=== PATIENT | male | born 1995 | race Caucasian/White ===

== ENCOUNTER → 2017-01-08 11:26 | Emergency (ER) | payer BC, OTHER ==
[2017-01-08 11:52] VITALS: BP 159/97
--- NOTE | 2017-01-08 12:32 | RAD ---
Indication: Left testicular pain. Real-time sonography of the scrotum was performed. The right testis measures 4.5 x 2.1 x 3.1 cm. No intratesticular masses are noted. Normal flow is noted in the right testis. The epididymis measures 14 x 15 mm with a cyst in the epididymal head measuring 7 x 5 x 7 mm. The left testes measures 4.4 x 2.3 x 2.9 cm. Doppler interrogation demonstrates flow in the left testis. Left epididymis measures 14 x 10 mm with a trace left hydrocele. IMPRESSION: No intratesticular masses are noted. Normal flow in both testis. Right epididymal head cyst measuring up to 7 mm.
--- NOTE | 2017-01-08 13:08 | ED ---
Les Tobin Benjamin, scribed for Torrey Hansen MD on 01/08/17 at 1155 . GI/ HPI - HPI Summary HPI Summary: 21yo male c/o gradual onset of left testicular pain 1.5 hour ago while he was in a meeting. Pt states that his pain worsens slightly when he walks. Hx of prior pain that comes and goes intermittently. - History of Current Complaint Chief Complaint: EDUrogenitalProblems Time Seen by Provider: 01/08/17 11:39 Stated Complaint: TESTICAL PAIN Hx Obtained From: Patient Onset/Duration: Started Hours Ago - 1.5 hr ago, Atraumatic, Still Present Timing: Constant Severity: Mild Current Severity: Mild Pain Intensity: 5 Additional Locations for Males: Testicles Associated Signs and Symptoms: Positive: Negative - Allergy/Home Medications Allergies/Adverse Reactions: Allergies Allergy/AdvReac Type Severity Reaction Status Date / Time No Known Allergies Allergy Verified 01/08/17 11:45 PMH/Surg Hx/FS Hx/Imm Hx Infectious Disease History: Denies: Traveled Outside the [place] in Last 30 Days - Family History Known Family History: Positive: Diabetes Negative: Cardiac Disease, Hypertension - Social History Occupation: Unemployed Lives: With Family Alcohol Use: None Substance Use Type: Reports: None Smoking Status (MU): Never Smoked Tobacco Review of Systems Constitutional: Negative Eyes: Negative ENT: Negative Cardiovascular: Negative Respiratory: Negative Gastrointestinal: Negative - left testicular pain Genitourinary: Negative Musculoskeletal: Negative Skin: Negative Neurological: Negative Psychological: Normal All Other Systems Reviewed And Are Negative: Yes Physical Exam Triage Information Reviewed: Yes Vital Signs On Initial Exam: Initial Vitals Temp Pulse Resp BP Pulse Ox 98.2 F 100 18 159/87 99 01/08/17 11:34 01/08/17 11:34 01/08/17 11:34 01/08/17 11:34 01/08/17 11:34 Vital Signs Reviewed: Yes Appearance: Positive: Well-Appearing, No Pain Distress, Well-Nourished Skin: Positive: Warm, Skin Color Reflects Adequate Perfusion, Dry Head/Face: Positive: Normal Head/Face Inspection Eyes: Positive: Normal ENT: Positive: Normal ENT inspection, Hearing grossly normal Neck: Positive: Supple, Nontender Respiratory/Lung Sounds: Positive: Clear to Auscultation, Breath Sounds Present Cardiovascular: Positive: RRR. Negative: Murmur Abdomen Description: Positive: Nontender, Soft Bowel Sounds: Positive: Present Male Genital Exam: Positive: epididymal tenderness - Tender at left epididymis. , other - Non tender when attempting an open book maneuver. Normal cremaster reflex.. Negative: scrotum tenderness (R), scrotum tenderness (L), testicular tenderness (R) - No tenderness in the testes., testicular tenderness (L) Musculoskeletal: Positive: Normal, Strength/ROM Intact Neurological: Positive: Sensory/Motor Intact, Alert, Oriented to Person Place, Time Psychiatric: Positive: Affect/Mood Appropriate Diagnostics - Vital Signs Vital Signs Temp Pulse Resp BP Pulse Ox 01/08/17 11:34 98.2 F 100 18 159/87 99 - Laboratory Lab Statement: Any lab studies that have been ordered have been reviewed, and results considered in the medical decision making process. - Ultrasound No standard instances Ultrasound Interpretation: Positive (See Comments) - TESTICULAR US: Right epididymal head cyst measuring up to 7 mm. Ultrasound Interpretation Completed By: Radiologist GIGU Course/Dx - Course Course Of Treatment: Reviewed pts medication and allergy lists. High blood pressure noted. Discussed Dr. Vallejo (Urologist) at 12:49 for consult. Assessment/Plan: Mr. Bruce sounds like he has been having an intermittent torsion problem with his left testicle. He is OK now and safe to go home and F/ U with Dr. Vallejo tomorrow. He will return if his pain recurs. - Diagnoses Provider Diagnoses: Testicular pain, left Discharge - Discharge Plan Condition: Stable Disposition: HOME Patient Education Materials: Testicle Pain (ED) Referrals: Arturo Vallejo MD [Medical Doctor] - 1 Day The documentation as recorded by the Les vega Benjamin accurately reflects the service I personally performed and the decisions made by me, Torrey Hansen MD.
== END | disposition home or self-care (01) ==
LOC: ED 11:26
DX: N50.812 Left testicular pain (principal)
CPT/HCPCS: 76870; 99282